=== PATIENT | female | born 1940 | race Caucasian/White ===

== ENCOUNTER 2016-10-05 19:55 | Emergency (ER) | payer MEDICARE ==
[2016-10-05 21:30] LABS: HEMOGLOBIN 10.2 gm/dl (12.3-15.3); RED BLOOD COUNT 3.31 M/UL (4.00-5.10)
== END 2016-10-06 10:15 | disposition home or self-care (01) ==
LOC: ER1 19:55
PROVIDERS: Emergency Medicine
DX: D69.6 Thrombocytopenia, unspecified (principal)
CPT/HCPCS: 36415; 36430; 85025; 85049; 85610; 85730; 86900; 86901; 99284; P9037; Q0163

== ENCOUNTER → 2016-11-03 | Outpatient (CLI) | payer MEDICARE ==
[2016-11-03 19:55] LABS: HEMOGLOBIN 7.1 gm/dl (12.3-15.3); RED BLOOD COUNT 2.34 M/UL (4.00-5.10); WHITE BLOOD COUNT 2.3 K/UL (4.5-11.0)
[2016-11-03 23:09] LABS: HEMOGLOBIN 7.7 gm/dl (12.3-15.3); RED BLOOD COUNT 2.47 M/UL (4.00-5.10); WHITE BLOOD COUNT 2.3 K/UL (4.5-11.0)
== END ==
LOC: EROP 18:20 → ZEROF 20:22
PROVIDERS: Internal Medicine; Physician Assistant Medical
DX: D61.9 Aplastic anemia, unspecified (principal)
CPT/HCPCS: 36430; 85025; 86850; 86900; 86901; 86920; J1642; P9040; Q0163

== ENCOUNTER → 2016-11-07 | Outpatient (CLI) | payer MEDICARE ==
[~2016-11-07] VITALS: Ht 162.6 cm; Wt 68.5 kg
[2016-11-07 10:49] LABS: HEMOGLOBIN 8.4 gm/dl (12.3-15.3)
== END ==
LOC: OPSV 10:14
DX: D64.9 Anemia, unspecified (principal)
CPT/HCPCS: 36430; 36591; 85014; 85018; 85049; 86900; 86901; J1642; J7050; P9037; Q0163

== ENCOUNTER 2016-11-14 06:56 | Emergency (ER) | payer MEDICARE ==
[2016-11-14 08:11] LABS: RED BLOOD COUNT 3.02 M/UL (4.00-5.10)
[2016-11-14 08:44] LABS: BUN/CREATININE RATIO 25 (0-10)
== END 2016-11-14 12:33 | disposition home or self-care (01) ==
LOC: ER1 06:56
PROVIDERS: Emergency Medicine
DX: D69.6 Thrombocytopenia, unspecified (principal)
CPT/HCPCS: 36415; 36430; 80053; 80158; 83735; 84100; 85025; 85049; 85610; 85730; 86900; 86901; 99283; P9037; Q0163

== ENCOUNTER → 2016-12-17 | Outpatient (CLI) | payer MEDICARE | LOC: LAB 09:17 → EROP 09:17 | DX: D61.9 Aplastic anemia, unspecified (principal) ==